=== PATIENT | male | born 1970 | race Two or more races ===

== ENCOUNTER 2021-06-18 04:37 | Day surgery (SDC) | payer OTHER ==
[2021-06-12 13:36] VITALS: BMI 25.9
[2021-06-18 09:30] VITALS: TEMP 97.5
[2021-06-18 09:59] VITALS: BP 105/66; PULSE 76
== END 2021-06-18 10:28 | disposition home or self-care (01) ==
LOC: JASU-ENDO 04:37
PROVIDERS: ATTEND Internal Medicine Gastroenterology
PROC: 0DBL8ZX Excision of Transverse Colon, Via Natural or Artificial Opening Endoscopic, Diagnostic (ICD-10-PCS; principal; 2021-06-18 08:45)
DX: K92.1 Melena (principal); D12.3 Benign neoplasm of transverse colon; K64.8 Other hemorrhoids; K64.4 Residual hemorrhoidal skin tags
CPT/HCPCS: 88305-TC